=== PATIENT | female | born 1945 | race Asian ===

== ENCOUNTER 2018-05-12 21:38 | Inpatient (IN) | payer MEDICAID, MEDICARE ==
[~2018-05-12] VITALS: Ht 157.5 cm; Wt 86.9 kg
[2018-05-12 21:42] VITALS: BP_SYST 155
[2018-05-12] MEDS ORDERED: OXYB10TA4 PO (21:56)
[2018-05-12] MEDS ORDERED: NITSL SL (21:56)
[2018-05-12] MEDS ORDERED: ATEN50TA PO (21:56)
[2018-05-12] MEDS ORDERED: SIMV10TA2 PO (21:56)
[2018-05-12] MEDS ORDERED: ISOS30TA6 PO (21:56)
[2018-05-12] MEDS ORDERED: LISI-209 PO (21:56)
[2018-05-12] MEDS ORDERED: MECL12.584 PO (21:56)
[2018-05-12] MEDS ORDERED: PANT20TA2 PO (21:56)
[2018-05-12] MEDS ORDERED: NACL 0.9% 1,000 ML IV ONE (22:13)
[2018-05-12] MEDS ORDERED: NITROGLYCERIN 0.4 MG TAB.SUBL SL ONE (22:15)
[2018-05-12] MEDS ORDERED: ONDANSETRON HCL 4 MG/2 ML VIAL IVP ONE (22:15)
[2018-05-12 22:31] LABS: BASOPHILS # (AUTO) 0.1 K/uL (0.0-0.2); EOSINOPHILS # (AUTO) 0.1 K/uL (0.0-0.4); EOSINOPHILS % (AUTO) 1.8 % (0.0-4.0); HEMATOCRIT 34.6 % (36-48); HEMOGLOBIN 11.6 g/dL (12.0-16.0); LYMPHOCYTES # (AUTO) 2.1 K/uL (1.0-5.5); LYMPHOCYTES % (AUTO) 33.7 % (20.5-51.5); MEAN CORPUSCULAR HEMOGLOBIN 30 pg (27-31); MEAN CORPUSCULAR HGB CONC 34 % (32-36); MEAN CORPUSCULAR VOLUME 89 fL (79.0-98.0); MONOCYTES # (AUTO) 0.5 K/uL (0.0-1.0); MONOCYTES % (AUTO) 7.5 % (1.7-9.3); NEUTROPHILS # (AUTO) 3.4 K/uL (1.8-7.7); PLATELET COUNT (AUTO) 202 K/uL (130-430); RED BLOOD CELL COUNT(AUTO) 3.89 MIL/uL (4.2-6.2); RED CELL DISTRIBUTION WIDTH 14.1 % (9.0-15.0); WHITE BLOOD COUNT (AUTO) 6.2 K/uL (4.8-10.8)
[2018-05-12 22:39] LABS: ALBUMIN 3.6 g/dL (3.4-4.8); ANION GAP 11 (5-15); ASPARTATE AMINOTRANSFERASE 14 U/L (10-37); CALCIUM 9.2 mg/dL (8.4-11.0); CHLORIDE 106 mmol/L (98-107); CREATININE 1.79 mg/dL (0.55-1.30); GLUCOSE 110 mg/dL (70-99); POTASSIUM 4.3 mmol/L (3.5-5.1); SODIUM SERUM 142 mmol/L (136-145); TOTAL BILIRUBIN 0.3 mg/dL (0.0-1.0)
[2018-05-12 22:48] LABS: ALANINE AMINOTRANSFERASE 18 U/L (12-78)
[2018-05-12 23:04] LABS: INR 0.9 (0.8-1.2); PROTHROMBIN TIME 9.5 SECS (9.5-12.5)
[2018-05-12 23:05] LABS: UREA NITROGEN, BLOOD 27 mg/dL (8-21)
[2018-05-12 23:30] LABS: BILIRUBIN,URINE NEGATIVE (NEGATIVE); BLOOD, URINE NEGATIVE (NEGATIVE); CLARITY/URINE CLEAR (CLEAR); COLOR,URINE YELLOW (YELLOW); GLUCOSE,URINE NEGATIVE (NEGATIVE); KETONES,URINE NEGATIVE (NEGATIVE); LEUKOCYTE ESTERASE ,URINE NEGATIVE (NEGATIVE); NITRITE, URINE NEGATIVE (NEGATIVE); PH,URINE 5.5 (5.0-8.0); PROTEIN URINE NEGATIVE (NEGATIVE); UROBILINOGEN,URINE 0.2 (0.2-1.0)
[2018-05-13 01:33] VITALS: BP_SYST 136
[2018-05-13 08:00] VITALS: BP_SYST 147
[2018-05-13] MEDS ORDERED: NITROGLYCERIN 0.4 MG TAB.SUBL SL SCH (10:00)
[2018-05-13 11:55] VITALS: BP_SYST 136
[2018-05-13] MEDS ORDERED: traMADol HCL HCL 50 MG TABLET (ULTRAM) PO SCH (12:00)
[2018-05-13 16:07] VITALS: BP_SYST 136
[2018-05-13 16:20] VITALS: BP_SYST 136
[2018-05-13] MEDS ORDERED: SIMVASTATIN 10 MG TABLET PO SCH (18:00)
[2018-05-14] MEDS ORDERED: ATENOLOL 50 MG TABLET (TENORMIN) PO SCH (09:00)
[2018-05-14] MEDS ORDERED: OXYBUTYNIN CHLORIDE 5 MG TABLET PO SCH (09:00)
[2018-05-14] MEDS ORDERED: ISOSORBIDE MONONITRATE 30 MG TAB.ER.24H PO SCH (09:00)
[2018-05-14] MEDS ORDERED: LISINOPRIL 5 MG TABLET PO SCH (09:00)
== END 2018-05-13 16:55 | disposition home or self-care (01) | DRG 203 ==
LOC: SED 21:38 → STU 05-13 00:12
PROVIDERS: ADMIT Internal Medicine Hospice and Palliative Medicine; ATTEND Internal Medicine Hospice and Palliative Medicine
DX: R07.89 Other chest pain (principal); N18.3 Chronic kidney disease, stage 3 (moderate); I13.0 Hypertensive heart and chronic kidney disease with heart failure and stage 1 through stage 4 chronic kidney disease, or unspecified chronic kidney disease; I50.9 Heart failure, unspecified; E78.5 Hyperlipidemia, unspecified; E66.9 Obesity, unspecified; K21.9 Gastro-esophageal reflux disease without esophagitis; M19.90 Unspecified osteoarthritis, unspecified site; Z96.653 Presence of artificial knee joint, bilateral; Z90.49 Acquired absence of other specified parts of digestive tract; Z87.440 Personal history of urinary (tract) infections; Z88.8 Allergy status to other drugs, medicaments and biological substances; Z88.6 Allergy status to analgesic agent; Z79.899 Other long term (current) drug therapy; Z98.49 Cataract extraction status, unspecified eye; Z68.35 Body mass index [BMI] 35.0-35.9, adult; F32.9 Major depressive disorder, single episode, unspecified
CPT/HCPCS: 36415; 71045; 80053; 81003; 83880; 84484; 85025; 85610-TC; 85730-TC; 87081; 93005; 96361; 96374; 99285; J2405; J7030